=== PATIENT | male | born 1990 ===

== ENCOUNTER → 2023-03-08 | Outpatient (REF) | payer OTHER ==
[2023-03-08 10:49] LABS: SEMEN APPEARANCE OPAQUE (OPAQUE)
[2023-03-08 10:50] LABS: SEMEN VISCOSITY LIQUID (LIQUID); SEMEN VOLUME 3.4 ml (2.0-5.0); SEMEN pH 8.5 (7.0-8.0); SPERM CONCENTRATION 54.8 M/ml (>=15.0); WBC CONCENTRATION <=1 M/ml (<=1 M/ml)
== END ==
LOC: M SFHCWAGY 10:25
PROVIDERS: ATTEND Specialist
DX: N46.9 Male infertility, unspecified (principal)